=== PATIENT | female | born 1985 | race Caucasian/White ===

== ENCOUNTER 2017-03-16 09:20 | Observation (INO) ==
--- NOTE | 2017-03-16 09:37 | Emergency Department Note ---
Disposition Clinical Impression: Near syncope Disposition: Admitted As Inpatient Condition: Good Referrals: Swetha Monte FREEZER MACHINE OPERATOR [Primary Care Provider] - Forms: ED Satisfaction Letter Time of Disposition: 12:05 Syncope HPI - General Chief Complaint: ED Syncope Stated Complaint: GENERAL Time Seen by Provider: 03/16/17 09:31 Source: patient Mode of arrival: ambulatory Limitations: no limitations Nursing Notes Reviewed: Yes Vital Signs Reviewed: Yes - History of Present Illness HPI Narrative: 32-year-old female was driving to work earlier today became nauseated sweaty and felt like she is going to pass out she drove to her and laws laid on the floor for while started feeling somewhat better got into her car 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 Patient had a similar episode on Sunday. Patient has had what sounds to be vasovagal episodes in the past but nothing like this. Pt Subjective Complaint: felt faint, almost passed out Onset (ago): Just VALUE ADVISOR Duration: minutes(s) Description of Event: post-event confusion Prodromal Symptoms: lightheaded, diaphoresis, nausea/vomiting Witnessed: no Context: other (Driving) Injuries Sustained Associated with Event: none Current Symptoms: lightheaded History: previous syncopal episode Treatments prior to arrival: none Associated trauma secondary to event: No - Related Data Home Medications Medication Instructions Recorded Confirmed Levothyroxine [Synthroid] 112 mcg PO DAILY 06/11/15 01/25/17 Pantoprazole Sodium [Protonix] 40 mg PO DAILY 06/11/15 01/25/17 Buspirone HCl [Buspar] 10 mg PO BID 05/15/16 01/25/17 Cyanocobalamin (B-12) [Vitamin B12] 1,000 mcg PO DAILY 05/15/16 01/25/17 HydrOXYzine Pamoate [Vistaril] 25 mg PO Q8H PRN 05/15/16 01/25/17 Acetaminophen [Tylenol] 500 mg PO Q6H PRN 09/20/16 01/25/17 FLUoxetine HCl [PROzac] 20 mg PO DAILY 09/20/16 01/25/17 Ondansetron [Zofran] 8 mg PO Q8H PRN 09/20/16 01/25/17 SUMAtriptan Succinate [Imitrex] 100 mg PO DAILY PRN 09/20/16 01/25/17 Ergocalciferol (VITAMIN D2) 50,000 unit PO MO 11/01/16 01/25/17 [Vitamin D2] Magic Mouthwash 5 ml PO Q4H 11/01/16 01/25/17 Previous Rx's Medication Instructions Recorded Naproxen [Naprosyn] 500 mg PO BID #20 tablet 01/25/17 Allergies Allergy/AdvReac Type Severity Reaction Status Date / Time metoclopramide [From Reglan] Allergy See Verified 01/25/17 16:39 Comments All systems ED: reviewed and negative except as stated. Constitutional: Denies: fever, chills, weakness, weight change Eyes: Denies: eye pain, eye discharge, vision change ENT ED: Denies: ear pain, throat pain, dental pain, hearing loss, epistaxis, congestion, dysphagia Cardiovascular: Reports: syncope (Near). Denies: chest pain, palpitations, dyspnea on exertion, edema Respiratory: Denies: cough, dyspnea, wheezes, hemoptysis, stridor Gastrointestinal: Denies: abdominal pain, nausea, vomiting, diarrhea, constipation, hematemesis, melena, hematochezia Genitourinary: Denies: dysuria, frequency, hematuria, discharge Musculoskeletal: Denies: back pain, neck pain, arthralgia, myalgia Integumentary: Denies: rash, abrasion, lesions Neurological: Denies: headache, weakness, numbness, paresthesias, confusion, abnormal gait, vertigo Psychiatric: Denies: anxiety, depression, suicidal thoughts, homicidal thoughts , auditory hallucinations, visual hallucinations Endocrine: Denies: fatigue Hematological/Lymphatic: Denies: easy bleeding, easy bruising Allergic/Immunologic: Denies: facial swelling, urticaria Past Medical History - Past Medical History Medical history: Reports: arthritis, GERD, thyroid disease Surgical history: Reports: other Psychiatric history: Reports: anxiety 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 - Social History Smoking Status: Never smoker Smokeless Tobacco Status: No Alcohol use: Reports: none Drug use: Reports: none Physical Exam - General Limitations: no limitations General appearance: alert, in no apparent distress - Head Head exam: atraumatic, normocephalic, normal inspection - Eye Eye exam: Present: normal appearance, PERRL, EOMI - ENT ENT exam: normal exam, normal oropharynx, mucous membranes moist - Neck Neck exam: Present: normal inspection, full ROM, trachea midline - Chest Chest inspection: Present: normal inspection, symmetric chest wall rise - Respiratory Respiratory exam: Present: normal lung sounds bilaterally - Cardiovascular Cardiovascular exam: Present: regular rate, normal rhythm, normal heart sounds - Abdominal Exam Abdominal exam: Present: soft, Non-Tender. Absent: tenderness, distention, guarding, rebound, rigidity - Extremities Exam Extremities exam: Present: normal inspection, full ROM. Absent: tenderness, pedal edema - Expanded Lower Extremity Exam Neurovascular/Tendon exam: Absent: motor deficit, sensory deficit, tendon deficit Gait: observed and normal - Back Exam Back exam: Present: normal inspection, full ROM. 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 The previous episode about 4 days ago. Patient will be admitted for differential include seizure versus near syncope versus cardiac arrhythmia. Time: 12:06 - Consultations Consultation #1: Discussed with Dr. Manuel, admit Time: 12:04 Vital Signs Temperature 98.5 F 03/16/17 09:25 Pulse Rate 95 03/16/17 09:25 Respiratory Rate 16 03/16/17 09:25 Blood Pressure 136/94 03/16/17 09:25 O2 Sat by Pulse Oximetry 96 03/16/17 09:25 Temperature 98.5 F 03/16/17 09:25 Pulse Rate 81 03/16/17 11:28 Respiratory Rate 16 03/16/17 11:00 Blood Pressure 118/88 03/16/17 11:28 O2 Sat by Pulse Oximetry 99 03/16/17 11:00 Oxygen Delivery Oxygen Delivery Room Air Syncope - Lab Data Lab results reviewed: Yes I reviewed the patient's lab results. Result diagrams: 03/16/17 09:47 03/16/17 09:47 Lab Results 03/16/17 03/16/17 03/16/17 Range/Units 09:35 09:47 09:47 WBC 8.5 (4.3-11.1) K/mcL RBC 4.94 (3.82-4.97) M/mcL Hgb 14.7 (11.5-15.4) g/dL Hct 45.4 H (35.3-44.9) % MCV 91.9 (83.0-100.0) fL MCH 29.8 (28.0-33.3) pg MCHC 32.4 (31.6-35.5) g/dL RDW 13.2 (11.5-14.5) % Plt Count 291 (140-400) K/mcL MPV 9.5 (9.4-12.4) fL Immature Gran % 0.2 (0-4) % Seg Neutrophils % 75.1 % Lymphocytes % 17.4 % Monocytes % 6.0 % Eosinophils % 0.8 % Basophils % 0.5 % Neutrophils # 6.4 (1.6-8.9) K/mcL Lymphocytes # 1.5 (0.6-4.6) K/mcL Monocytes # 0.5 (0.0-1.3) K/mcL Eosinophils # 0.1 (0.0-0.6) K/mcL Basophils # 0.0 (0.0-0.2) K/mcL PT 10.9 (9.4-12.1) Seconds INR 1.0 APTT 28.3 (26.0-36.0) Seconds Sodium (136-145) mEq/L Potassium (3.5-4.5) mEq/L Chloride (98-109) mEq/L Carbon Dioxide (19-29) mEq/L BUN (7-20) mg/dL Creatinine (0.57-1.11) mg/dL Est GFR ( Amer) (> 60) Est GFR (Non-Af Amer) (> 60) BUN/Creatinine Ratio (6-26) Glucose (70-99) mg/dL Calculated Osmolality (280-300) Calcium (8.6-10.8) mg/dL Troponin I (0-0.03) ng/mL Serum , Qual (Negative) Urine Color Yellow (Yellow) Urine Clarity Clear (Clear) Urine pH 7.5 (5.0-8.0) pH Units Ur Specific [place] 1.012 (1.010-1.025) Urine Protein Negative (Neg-Trace) mg/dL Urine Glucose (UA) Normal (Normal) mg/dL Urine Ketones Negative (Negative) mg/dL Urine Blood Negative (Negative) Urine Nitrite Negative (Negative) Urine Bilirubin Negative (Negative) Urine Urobilinogen Normal (Normal) mg/dL Ur Leukocyte Esterase Negative (Negative) Ur Culture Indicated? NO (NO) 03/16/17 03/16/17 03/16/17 Range/Units 09:47 09:47 09:47 WBC (4.3-11.1) K/mcL RBC (3.82-4.97) M/mcL Hgb (11.5-15.4) g/dL Hct (35.3-44.9) % MCV (83.0-100.0) fL MCH (28.0-33.3) pg MCHC (31.6-35.5) g/dL RDW (11.5-14.5) % Plt Count (140-400) K/mcL MPV (9.4-12.4) fL Immature Gran % (0-4) % Seg Neutrophils % % Lymphocytes % % Monocytes % % Eosinophils % % Basophils % % Neutrophils # (1.6-8.9) K/mcL Lymphocytes # (0.6-4.6) K/mcL Monocytes # (0.0-1.3) K/mcL Eosinophils # (0.0-0.6) K/mcL Basophils # (0.0-0.2) K/mcL PT (9.4-12.1) Seconds INR APTT (26.0-36.0) Seconds Sodium 140 (136-145) mEq/L Potassium 4.0 (3.5-4.5) mEq/L Chloride 107 (98-109) mEq/L Carbon Dioxide 25 (19-29) mEq/L BUN 8 (7-20) mg/dL Creatinine 0.73 (0.57-1.11) mg/dL Est GFR ( Amer) > 60 (> 60) Est GFR (Non-Af Amer) > 60 (> 60) BUN/Creatinine Ratio 11 (6-26) Glucose 93 (70-99) mg/dL Calculated Osmolality 288 (280-300) Calcium 9.2 (8.6-10.8) mg/dL Troponin I 0.00 (0-0.03) ng/mL Serum , Qual Negative (Negative) Urine Color (Yellow) Urine Clarity (Clear) Urine pH (5.0-8.0) pH Units Ur Specific [place] (1.010-1.025) Urine Protein (Neg-Trace) mg/dL Urine Glucose (UA) (Normal) mg/dL Urine Ketones (Negative) mg/dL Urine Blood (Negative) Urine Nitrite (Negative) Urine Bilirubin (Negative) Urine Urobilinogen (Normal) mg/dL Ur Leukocyte Esterase (Negative) Ur Culture Indicated? (NO) - Radiology Data Radiology results reviewed: Yes I reviewed the patient's radiology results. Chest X-Ray 03/16/17 09:34 IMPRESSION: No acute cardiopulmonary process. D/ / 03/16/2017 11:01:25 Reagan Rea MD / [facility] Interpreting Provider: Reagan Rea MD Head CT 03/16/17 09:35 IMPRESSION: No acute intracranial abnormality. D/ / Dominik Agrawal MD / Dominik Agrawal MD Interpreting Provider: Dominik Agrawal MD - EKG Data EKG attestation: Yes I reviewed and interpreted this EKG. EKG shows normal: sinus rhythm Rate: normal Rhythm: NSR Interpretation: no acute changes
[2017-03-16 09:58] LABS: Basophils % 0.5 %; Eosinophils # 0.1 K/mcL (0.0-0.6); Eosinophils % 0.8 %; Hematocrit 45.4 % (35.3-44.9); Hemoglobin 14.7 g/dL (11.5-15.4); Immature Granulocytes % 0.2 % (0-4); Lymphocytes # 1.5 K/mcL (0.6-4.6); Lymphocytes % 17.4 %; Mean Corpuscular HGB Conc 32.4 g/dL (31.6-35.5); Mean Corpuscular Hemoglobin 29.8 pg (28.0-33.3); Mean Corpuscular Volume 91.9 fL (83.0-100.0); Mean Platelet Volume 9.5 fL (9.4-12.4); Monocytes # 0.5 K/mcL (0.0-1.3); Neutrophils # 6.4 K/mcL (1.6-8.9); Platelet Count 291 K/mcL (140-400); Red Blood Count 4.94 M/mcL (3.82-4.97); Red Cell Distribution Width 13.2 % (11.5-14.5); Segmented Neutrophils % 75.1 %
[2017-03-16 10:01] LABS: Bilirubin,Urine Negative (Negative); Blood,Urine Negative (Negative); Clarity,Urine Clear (Clear); Color,Urine Yellow (Yellow); Glucose,Urine (UA) Normal (Normal); Ketones,Urine Negative (Negative); Leukocyte Esterase,Urine Negative (Negative); Nitrite,Urine Negative (Negative); PH,Urine 7.5 pH Units (5.0-8.0); Protein,Urine Negative (Neg-Trace); Specific Gravity,Urine 1.012 (1.010-1.025); Urobilinogen,Urine Normal (Normal)
[2017-03-16 10:04] LABS: Prothrombin Time 10.9 Seconds (9.4-12.1)
[2017-03-16 10:07] LABS: Activated Partial Thrombo Time 28.3 Seconds (26.0-36.0)
[2017-03-16 10:12] LABS: BUN/Creatinine Ratio 11 (6-26); Blood Urea Nitrogen 8 mg/dL (7-20); Calcium 9.2 mg/dL (8.6-10.8); Carbon Dioxide 25 mEq/L (19-29); Chloride 107 mEq/L (98-109); Glucose 93 mg/dL (70-99); Osmolality,Calculated 288 (280-300); Sodium 140 mEq/L (136-145); eGFR For African Americans > 60 (> 60); eGFR For Non-African Americans > 60 (> 60)
--- NOTE | 2017-03-16 12:19 | Event Note ---
Date of Encounter: 03/16/17 Time of Encounter: 12:16 1. Recurrent syncope, possibly vasovagal Consider possible PE, check a CT angiogram chest Telemetry, fall precautions, check echocardiogram Consider cardiology consult if positive findings 2. Hypothyroidism, continue Synthroid, may recheck TSH 3. GERD, continue PPI 4. Depression, stable 5. History of migraines, stable Omeprazole for GI prophylaxis and Lovenox for DVT prophylaxis. Admitted for observation, full code. Time spent on this admission 40 min . High risk for falling H&P to be completed by TJ Blanchard
[2017-03-16] MEDS ORDERED: Ondansetron ODT 4 MG TAB.RAPDIS SL ONE (12:32)
[2017-03-16] MEDS ORDERED: Ondansetron 4 MG/2 ML VIAL IVP PRN (13:06)
[2017-03-16] MEDS ORDERED: *HR* HYDROcodone/Acet 5/325 mg TABLET PO PRN (13:06)
[2017-03-16] MEDS ORDERED: Acetaminophen 325 MG TABLET PO PRN (13:06)
[2017-03-16] MEDS ORDERED: Naloxone 0.4 MG/ML INJ IVP PRN (13:06)
[2017-03-16] MEDS ORDERED: SUMAtriptan succinate 50 MG TABLET PO PRN (13:10)
[2017-03-16] MEDS ORDERED: hydrOXYzine pamoate 25 MG CAPSULE PO PRN (13:10)
--- NOTE | 2017-03-16 13:26 | Internal Med History&Physical ---
<JyotiraynecaitlinDemarcus bills - Last Filed: 03/16/17 13:52> Date of Encounter: 03/16/17 Time of Encounter: 12:30 Assessment and Plan (1) Near syncope Current visit: Yes Status: Acute Patient presents with acute pre-syncopal episode and report of previous syncopal episodes. Patient reports episodes are accompanied by diaphoresis, nausea, disorientation, SOB, and chest pressure. Patient denies any history of cardiac events, CVA, DVT, or PE. Episodes possibly vasovagal. Patient reports her father had MSJamel Due to SOB, will consider possibility of PE and order CTA of the chest. EKG today and from 06/11/15 are essentially unchanged showing sinus rhythm and normal ECG. Echocardiogram and bilateral carotid Doppler duplex imaging ordered and patient to be placed on continuous cardiac telemetry. Will consider cardiology consult based on results of echocardiogram and bilateral carotid Doppler imaging. Falls/safety precautions. (2) GERD (gastroesophageal reflux disease) Current visit: Yes Status: Chronic Patient presents with history of chronic GERD. IVP Zofran Q6 PRN and IVP Protonix 40 mg daily ordered. Qualifiers: Esophagitis presence: esophagitis presence not specified Qualified Code(s) : K21.9 - Gastro-esophageal reflux disease without esophagitis (3) Thyroid disease Current visit: Yes Status: Chronic Patient presents with history of chronic hypothyroidism. Will continue patient' s Synthroid. (4) Migraine Current visit: Yes Status: Chronic Patient presents with history of chronic migraine headaches. Will continue patient's Imitrex as needed. Qualifiers: Migraine type: unspecified Status migrainosus presence: without status migrainosus Intractability: not intractable Qualified Code(s): G43.909 - Migraine, unspecified, not intractable, without status migrainosus (5) Anxiety and depression Current visit: Yes Status: Chronic Patient presents with history of chronic anxiety and depression controlled with medications. Will continue patient's BuSpar and Prozac. (6) DVT prophylaxis Current visit: Yes Status: Acute Patient to be placed on DVT prophylaxis due to current admission protocol and bed rest status. Heparin 5,000 units SQ Q8 ordered. Internal Medicine - H&P: HPI Chief complaint: Syncope Admitted From: Emergency Dept Plans for Post Hospital Care: Home History of present illness: Ms. Silva is a 32 year old female with medical history of arthritis, GERD, thyroid disease, and gastroparesis presents from the ED with chief complaint of presyncope. Patient states she was driving to work earlier today and became diaphoretic and nauseous and improved her in-laws until she felt better. Again became diaphoretic, nauseous, and disoriented and was brought to the ED for evaluation. Patient states similar symptoms happened on Sunday. Patient also reports history of random syncopal episodes with palpitations over the past several years. Past injuries include a fractured skull when she was 14 a right foot sprain and one half months ago with no fracture. Patient reports lightheadedness, dizziness, disorientation, chest pressure, diaphoresis, and nausea. She denies vomiting, changes in vision, abdominal pain, headache, unusual bleeding, recent illness, fever, chills, or diarrhea. Patient also denies any previous cardiac history or history of CVA, DVT, or PE. On admission , patient's vital signs include temperature 98.5 F, heart rate of 95, respiratory rate of 16, BP of 136/94, and SPO2 of 96% on room air. Secondary BP was 118/88. Initial labs are unremarkable and WNL with exception of HCT at 45.4. Serum test is negative. UA is not indicative for culture. On examination, patient's HR is RRR with no arrhythmia and lungs are clear on auscultation. Patient is hemodynamically stable and reports no acute distress. Information taken from patient, chart review, and previous medical records. Ms. Silva is at high risk for falls/injury based on current symptoms and history of syncope and will be placed as observation status. Time spent with patient greater than 40 minutes. Past Med Surg Social Fam HX - Past Medical History Source: patient Medical history: arthritis, GERD, thyroid disease Psychiatric history: anxiety - Past Surgical History Surgical History: other - Social History Smoking Status: Never smoker Smokeless Tobacco Status: No Alcohol use: none Drug use: none Occupational status: employed Current living situation: Home, With Family Activity Level: Independent ambulation, Very active Recent Out of Country Travel Within the Last 8 Weeks: No Exposure or Possible Exposure to Illness During Travel: No - Family History Father Race: Family Member Ethnicity: Non- Living Status: Age at : 54 Cause of : DE Hx Family Cardiac Disorders: Yes (DE, HTN) Hx Family Neuromuscular Disorders: Yes (MS) Mother Race: Family Member Ethnicity: Non- Living Status: Still Living Hx Family Medical Disorders: No Brother Race: Family Member Ethnicity: Non- Living Status: Still Living Hx Family Medical Disorders: No Sister Race: Family Member Ethnicity: Non- Living Status: Still Living Hx Family Neurologic Disorders: Yes (Migraines) Internal Medicine - H&P: Meds Levothyroxine [Synthroid] 112 mcg PO DAILY 06/11/15 [History] Pantoprazole Sodium [Protonix] 40 mg PO DAILY 06/11/15 [History] Buspirone HCl [Buspar] 10 mg PO BID 05/15/16 [History] Cyanocobalamin (B-12) [Vitamin B12] 1,000 mcg PO DAILY 05/15/16 [History] HydrOXYzine Pamoate [Vistaril] 25 mg PO Q8H PRN 05/15/16 [History] Acetaminophen [Tylenol] 500 mg PO Q6H PRN 09/20/16 [History] FLUoxetine HCl [PROzac] 20 mg PO DAILY 09/20/16 [History] Ondansetron [Zofran] 8 mg PO Q8H PRN 09/20/16 [History] SUMAtriptan Succinate [Imitrex] 100 mg PO DAILY PRN 09/20/16 [History] Ergocalciferol (VITAMIN D2) [Vitamin D2] 50,000 unit PO MO 11/01/16 [History] Magic Mouthwash 5 ml PO Q4H 11/01/16 [History] Lubiprostone [Amitiza] 24 mcg PO BID 03/16/17 [History] 3 Allergy/AdvReac Type Severity Reaction Status Date / Time metoclopramide [From Reglan] Allergy See Verified 01/25/17 16:39 Comments All Systems PM: A 10-system review of systems was performed and is negative for pertinent findings except as documented above in the HPI. - Constitutional Constitutional: as per HPI, excessive sweating (Diaphoresis with syncopal episodes), falls, no chills, no fever(s), no night sweats - EENT Eyes: no change in vision, no discharge, no pain, no photophobia Ears: no ear discharge, no ear pain, no tinnitus Nose, mouth and throat: no dysphagia, no nasal discharge, no neck pain, no sore throat - Breasts Breasts: as per HPI - Cardiovascular Cardiovascular ROS IM: as per HPI, palpitations (With syncopal episodes), no chest pain, no diaphoresis, no dyspnea, no lightheadedness, no syncope - Respiratory Respiratory: no cough, no dyspnea, no wheezing, no excessive phlegm production - Gastrointestinal Gastrointestinal: as per HPI, nausea (With syncopal episodes), no abdominal pain , no diarrhea, no hematemesis, no hematochezia, no melena, no vomiting - Genitourinary Genitourinary: no change in urinary stream, no dysuria, no flank pain, no hematuria Menstruation: as per HPI - Musculoskeletal Musculoskeletal ROS IM: no numbness, no tingling - Integumentary Integumentary IM: no rash, no unusual bruising - Neurological Neurological ROS: confusion (Confusion and disorientation today with syncopal episode), no convulsions, no focal weakness, no numbness, no tingling, no tremor (s) - Psychiatric Psychiatric: as per HPI - Endocrine Endocrine IM: as per HPI - Hematologic/Lymphatic Hematologic/Lymphatic: no easy bruising - Allergic/Immunologic Allergic/Immunologic: as per HPI - Constitutional Vitals: Temp Pulse Resp BP Pulse Ox 98.4 F 80 0 130/94 97 03/16/17 13:10 03/16/17 13:10 03/16/17 13:00 03/16/17 13:10 03/16/17 13:10 General appearance: Present: cooperative, A&O X 3, pleasant, no acute distress, obese, answers questions appropriately - Head Head exam: Present: atraumatic, normocephalic - Eye Eye exam: Present: PERRL, conjuntiva pink, sclera anicteric Pupils: Present: PERRL - ENT ENT exam: Present: normal exam, normal external ear exam - Neck Neck exam general surgery: Present: normal inspection, supple, trachea midline. Absent: lymphadenopathy - Respiratory Respiratory exam: Present: CTAB. Absent: accessory muscle use, rales, rhonchi, wheezes - Cardiovascular Cardiovascular exam: Present: RRR, +S1, +S2. Absent: diastolic murmur, gallop, rubs, systolic murmur - GI/Abdominal GI/Abdominal exam: Present: normal bowel sounds, soft, no peritoneal signs. Absent: distended, tenderness - Rectal Rectal exam: Present: deferred - Additional comments: exam deferred. - Extremities Exam Extremities exam: Present: warm, radial pulses palpable and symmetrical. Absent : calf tenderness, cyanotic, pedal edema - Back Exam Back exam: Present: normal inspection - Neurological Exam Neurological exam: Present: CN II-XII intact, oriented X3, no focal deficits. Absent: pronater drift, facial droop, speech deficit - Psychiatric Psychiatric exam: Present: normal affect, normal mood - Skin Skin exam: Present: dry, intact Internal Med - H&P Results - Labs CBC & Chem 7: 03/16/17 09:47 03/16/17 09:47 - EKG Data EKG shows normal: sinus rhythm Rate: normal - EKG Data Prior EKG available for review: yes When compared to previous EKG: there is no significant change Interpretation IM: normal EKG - Diagnostic Studies Chest x-ray Additional comments: Impressions Chest X-Ray 03/16/17 09:34 IMPRESSION: No acute cardiopulmonary process. D/ / 03/16/2017 11:01:25 Reagan Rea MD / [facility] Interpreting Provider: Reagan Rea MD CT scan - head Additional comments: Impressions Head CT 03/16/17 09:35 IMPRESSION: No acute intracranial abnormality. D/ / Dominik Agrawal MD / Dominik Agrawal MD Interpreting Provider: Dominik Agrawal MD <Myke Abarca H - Last Filed: 03/16/17 18:27> Date of Encounter: 03/16/17 Internal Medicine - H&P: HPI History of present illness: Ms. Silva is a 32 year old female All Systems PM: A 10-system review of systems was performed and is negative for pertinent findings except as documented above in the HPI. - Constitutional Vitals: Temp Pulse Resp BP Pulse Ox 98.4 F 80 0 130/94 97 03/16/17 13:10 03/16/17 13:10 03/16/17 13:00 03/16/17 13:10 03/16/17 13:10 Internal Med - H&P Results - Labs CBC & Chem 7: 03/16/17 09:47 03/16/17 09:47 - Impressions ITS Impressions Chest CTA 03/16/17 14:30 IMPRESSION: No evidence of pulmonary embolism or acute pulmonary abnormality. D/ / Bj Price / Bj Price Interpreting Provider: Bj Price - Attending Attestation 1. Recurrent syncope, possibly vasovagal Consider possible PE, check a CT angiogram chest Telemetry, fall precautions, check echocardiogram Consider cardiology consult if positive findings 2. Hypothyroidism, continue Synthroid, may recheck TSH 3. GERD, continue PPI 4. Depression, stable 5. History of migraines, stable Omeprazole for GI prophylaxis and Lovenox for DVT prophylaxis. Admitted for observation, full code. Time spent on this admission 40 min . High risk for falling For this encounter, I have reviewed the TACKING STITCH REMOVER or PA documentation, treatment plan, and medical decision making; and I have had face to face time with this patient.
[2017-03-16] MEDS: Pantoprazole 40 MG VIAL IVP SCH (16:00)
[2017-03-16] MEDS: Magic Mouthwash 10 ML UD Cup PO SCH ×4 (16:27→23:34)
[2017-03-16] MEDS: *HR* Heparin 5,000 UNIT/ML VIAL SQ SCH ×2 (16:28→20:28)
--- NOTE | 2017-03-16 17:24 | Carotid Imaging Report ---
Carotid Duplex Patient Name:Conchita Silva Order Number:[id number] Procedure Date:03/16/2017 Date:1985Age:32 yrs Gender:Female Lt BP:130 / 94 mmHg Rt.BP:130 / 94 mmHgHeart Rate: Location:[facility] Room #: 3B55 Portrait Artist:Yuridia Joya RDCS Referring MD:Demarcus Blanchard CNP personnel security specialist:Swetha Monte, RESEARCH SOIL SCIENTIST Reading MD:Byron Brock MD Primary Indications:Syncope Impressions: The bilateral carotid arteries are normal throughout. Findings Prior Study: No prior study available for comparison. Carotid Results Right PSV EDV Assessment Proximal CCA 91 19 Normal Mid CCA 86 28 Normal Distal CCA 79 26 Normal Bifurcation 69 29 Normal Proximal ICA 77 38 Normal Mid ICA 109 62 Normal Distal ICA 106 59 Normal ECA 79 17 Normal Vertebral Artery 55 25 Antegrade Flow Left PSV EDV Assessment Proximal CCA 102 22 Normal Mid CCA 77 22 Normal Distal CCA 81 30 Normal Bifurcation 61 27 Normal Proximal ICA 67 25 Normal Mid ICA 71 41 Normal Distal ICA 92 46 Normal ECA 93 17 Normal Vertebral Artery 49 24 Antegrade Flow Ratio's Right ICA/CCA Ratio: 1.27 ICA/CCA Values: 109/86 Left ICA/CCA Ratio: 1.19 ICA/CCA Values: 92/77 Updated by Byron Brock MD on 03/16/2017 5:16:43 PM electronically signed on 03/16/2017 5:17:04 PM with status of Final
[2017-03-16] MEDS: (Lubiprostone [Amitiza] 24 MCG) PO SCH (20:28)
[2017-03-17] MEDS: Magic Mouthwash 10 ML UD Cup PO SCH ×3 (05:56→12:20)
[2017-03-17] MEDS: *HR* Heparin 5,000 UNIT/ML VIAL SQ SCH ×2 (06:12→12:06)
[2017-03-17 08:06] LABS: Basophils % 0.6 %; Eosinophils # 0.1 K/mcL (0.0-0.6); Eosinophils % 1.4 %; Hematocrit 43.5 % (35.3-44.9); Hemoglobin 14.3 g/dL (11.5-15.4); Immature Granulocytes % 0.2 % (0-4); Lymphocytes # 1.8 K/mcL (0.6-4.6); Lymphocytes % 35.1 %; Mean Corpuscular HGB Conc 32.9 g/dL (31.6-35.5); Mean Corpuscular Hemoglobin 30.6 pg (28.0-33.3); Mean Corpuscular Volume 92.9 fL (83.0-100.0); Mean Platelet Volume 10.2 fL (9.4-12.4); Monocytes # 0.4 K/mcL (0.0-1.3); Monocytes % 8.2 %; Neutrophils # 2.7 K/mcL (1.6-8.9); Platelet Count 295 K/mcL (140-400); Red Blood Count 4.68 M/mcL (3.82-4.97); Red Cell Distribution Width 13.5 % (11.5-14.5); Segmented Neutrophils % 54.5 %
[2017-03-17] MEDS: (Lubiprostone [Amitiza] 24 MCG) PO SCH (08:08)
[2017-03-17 08:22] LABS: Hemoglobin A1C 4.7 %
[2017-03-17] MEDS: Pantoprazole 40 MG VIAL IVP SCH (08:22)
[2017-03-17 08:36] LABS: Alanine Aminotransferase 12 Units/L (0-55); Albumin 3.6 g/dL (3.5-5.0); Albumin/Globulin Ratio 0.9 (1.1-2.2); Alkaline Phosphatase 104 Units/L (38-126); Aspartate Amino Transferase 15 Units/L (5-34); BUN/Creatinine Ratio 14 (6-26); Bilirubin,Total 0.6 mg/dL (0.2-1.2); Blood Urea Nitrogen 11 mg/dL (7-20); Calcium 9.1 mg/dL (8.6-10.8); Carbon Dioxide 28 mEq/L (19-29); Chloride 104 mEq/L (98-109); Chol/HDL Ratio 3.6 (0-4.9); Cholesterol 243 mg/dL (< 200); Globulin 3.8 g/dL (2.4-3.5); Glucose 77 mg/dL (70-99); HDL Cholesterol 67 mg/dL (40-59); LDL Cholesterol,Calculated 163 mg/dL (0-99); Magnesium 2.5 mg/dL (1.6-2.6); Osmolality,Calculated 288 (280-300); Sodium 140 mEq/L (136-145); Total Protein 7.4 g/dL (6.0-8.3); Triglycerides 66 mg/dL (< 150); eGFR For African Americans > 60 (> 60); eGFR For Non-African Americans > 60 (> 60)
[2017-03-17 08:57] LABS: Thyroid Stimulating Hormone 4.068 mcIU/mL (0.350-4.840)
[2017-03-17] MEDS ORDERED: Cyanocobalamin (B-12) 1,000 MCG TABLET PO SCH (09:00)
[2017-03-17] MEDS ORDERED: FLUoxetine 20 MG CAPSULE PO SCH (09:00)
--- NOTE | 2017-03-17 09:53 | Internal Med Progress Note ---
Date of Encounter: 03/17/17 Time of Encounter: 09:15 - Assessment and plan (1) Near syncope Current Visit: Yes Status: Acute Assessment and plan: Unclear causation at this time. Patient stating she had her first episode when she was 14 years old and had a resultant syncopal episode with loss of consciousness and a skull fracture. She has not had an MRI since the age of 14. History is not consistent with seizures, neurology brought on board- appreciate their recommendations. No signs of acute infectious processes. Chest x-ray negative. Head CT negative. Carotid ultrasound unremarkable. Echocardiogram normal with ejection fraction of 60%. CTA negative. Urinalysis negative. TSH normal. Mild hyperlipidemia otherwise lab work unremarkable. Patient is currently asymptomatic. She states that these episodes have recurred several times throughout her adult life as well. MRI pending. She states that her maternal grandfather at age 29 from a brain aneurysm. She does have history of gastroparesis but is being followed up at the [facility] and at [facility]. She denies any current symptoms. We will await MRI results. ITS Impressions Chest X-Ray 03/16/17 09:34 IMPRESSION: No acute cardiopulmonary process. D/ / 03/16/2017 11:01:25 Reagan Rea MD / [facility] Interpreting Provider: Reagan Rea MD Head CT 03/16/17 09:35 IMPRESSION: No acute intracranial abnormality. D/ / Dominik Agrawal MD / Dominik Agrawal MD Interpreting Provider: Dominik Agrawal MD Chest CTA 03/16/17 14:30 IMPRESSION: No evidence of pulmonary embolism or acute pulmonary abnormality. D/ / Bj Price / Bj Price Interpreting Provider: Bj Price Carotid Duplex Procedure Date: 03/16/2017 Impressions: The bilateral carotid arteries are normal throughout. Echocardiogram Date of Study: 03/16/2017 Impressions: LVEF 60%. Normal LV chamber size, wall thickness and function. Normal left ventricular diastolic function. Normal right ventricular structure and function. No evidence of pulmonary hypertension. No significant valvular dysfunction. (2) Gastroparesis Current Visit: Yes Status: Chronic Assessment and plan: She is followed both at [facility] and [facility]. Denies current issues or concerns. (3) Hyperlipidemia Current Visit: Yes Status: Acute Assessment and plan: Total cholesterol 243, LDL 163. Recommend lifestyle changes. Addition of a statin at the discretion of her primary care team (4) GERD (gastroesophageal reflux disease) Current Visit: Yes Status: Chronic Assessment and plan: Denies current symptoms. Qualifiers: Esophagitis presence: esophagitis presence not specified Qualified Code(s) : K21.9 - Gastro-esophageal reflux disease without esophagitis (5) Thyroid disease Current Visit: Yes Status: Chronic Assessment and plan: Patient had hypothyroidism and was placed on Synthroid. Her TSH was low and her Synthroid dosage was decreased approximately 1-1/2 months ago per the [facility]. TSH normal today. We will check T3 and T4. (6) Migraine Current Visit: Yes Status: Chronic Assessment and plan: Patient denies headaches at this time. Imitrex as needed. Qualifiers: Migraine type: unspecified Status migrainosus presence: without status migrainosus Intractability: not intractable Qualified Code(s): G43.909 - Migraine, unspecified, not intractable, without status migrainosus (7) Anxiety and depression Current Visit: Yes Status: Chronic Assessment and plan: Mood and affect stable. Patient denies any increased stressors or psychosocial issues at home. (8) DVT prophylaxis Current Visit: Yes Status: Acute Assessment and plan: Subcutaneous heparin - Subjective Interval history: Patient seen and examined. On examination, patient sitting upright in bed. Patient denies pain, shortness of breath, dizziness or lightheadedness at this time. She is endorsing a normal appetite. - Constitutional Vitals: Temp Pulse Resp BP Pulse Ox 98.3 F 69 16 115/83 100 03/17/17 07:16 03/17/17 07:16 03/17/17 07:16 03/17/17 07:16 03/17/17 07:16 General appearance: Present: cooperative, A&O X 3, pleasant, no acute distress, answers questions appropriately - Head Head exam: Present: atraumatic, normocephalic - Eye Eye exam: Present: PERRL, conjuntiva pink, sclera anicteric Pupils: Present: PERRL - Neck Neck exam general surgery: Present: supple, trachea midline. Absent: lymphadenopathy - Respiratory Respiratory exam: Present: CTAB. Absent: accessory muscle use, rales, respiratory distress, rhonchi, wheezes - Cardiovascular Cardiovascular exam: Present: RRR, +S1, +S2. Absent: diastolic murmur, gallop, rubs, systolic murmur - GI/Abdominal GI/Abdominal exam: Present: normal bowel sounds, soft, no peritoneal signs. Absent: distended, tenderness - Extremities Exam Extremities exam: Present: warm, radial pulses palpable and symmetrical. Absent : calf tenderness, cyanotic, pedal edema - Neurological Exam Neurological exam: Present: alert, CN II-XII intact, normal gait, oriented X3, no focal deficits, strengths equal and symetr throughout. Absent: pronater drift, facial droop, speech deficit - Skin Skin exam: Present: dry, intact, normal color, warm Internal Medicine: Result - Labs CBC & Chem 7: 03/17/17 06:54 03/17/17 06:54 Labs: Short CBC 03/17/17 Range/Units 06:54 WBC 5.0 (4.3-11.1) K/mcL Hgb 14.3 (11.5-15.4) g/dL Hct 43.5 (35.3-44.9) % Plt Count 295 (140-400) K/mcL Neutrophils # 2.7 (1.6-8.9) K/mcL BMP 03/17/17 06:54 Sodium 140 Potassium 4.0 Chloride 104 Carbon Dioxide 28 BUN 11 Creatinine 0.76 Glucose 77 Calcium 9.1 Liver Function 03/17/17 Range/Units 06:54 Total Bilirubin 0.6 (0.2-1.2) mg/dL AST 15 (5-34) Units/L ALT 12 (0-55) Units/L Alkaline Phosphatase 104 (38-126) Units/L Albumin 3.6 (3.5-5.0) g/dL - ABG Interpretation ABG results: PT/INR, D-dimer PT 10.9 Seconds (9.4-12.1) 03/16/17 09:47 D-Dimer 522 ng/mLFEU (0-500) H 03/16/17 12:59 - Impressions Impressions Chest CTA 03/16/17 14:30 IMPRESSION: No evidence of pulmonary embolism or acute pulmonary abnormality. D/ / Bj Price / Bj Price Interpreting Provider: Bj Price Consult Discharge Plan - Plan Referrals: Swetha Monte, INDUSTRIAL ORGANIZATION MANAGER [Primary Care Provider] -
--- NOTE | 2017-03-17 10:08 | Neurology - Consult Note ---
Date of Encounter: 03/17/17 Time of Encounter: 10:01 Assessment and Plan (1) Near syncope Current Visit: Yes Status: Acute Patient developed few episodes of what appeared to be near syncopal episodes usually resolved with laying down not associated with loss of consciousness, last one was prolonged with observed confusion and headache. does not appear to be seizures. may be vasaovagal or orthostatic in nature. Agree with obtaining MRI of brain without contrast. If symptoms persist then she may benefit from rhythm monitoring or cardiology consult. EEG thought to be of low yield but this can certainly be done as an outpatient. I will see her again at your request History of Present Illness Chief complaint: near syncope and confusion HPI: Ms. Silva is a 32 year old female 32 year old woman with PMH significant for gastroparesis, Vitamin D deficiency, Hypothyroidism, migraine anxiety depression who developed near syncope x3 within the last week. 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 She had then another similar episode later. The 3th episode was more prominent and she felt an overwhelming feeling over her whole body and she felt that her body was shutting down and then over the next half hour she was told that that she was confused and she also developed a frontal headache. She does have history of migraine in the past but these near syncope episodes are different. She denies loss of consciousness. No motor activity reported. She is currently feeling fine and denies any focal neurological symptoms Past Med Surg Social Fam HX - Past Medical History Medical history: arthritis, GERD, thyroid disease Psychiatric history: anxiety - Past Surgical History Surgical History: other - Social History Smoking Status: Never smoker Smokeless Tobacco Status: No Alcohol use: none Drug use: none - Family History Father Race: Family Member Ethnicity: Non- Living Status: Age at : 54 Cause of : HI Hx Family Cardiac Disorders: Yes (HI, HTN) Hx Family Neuromuscular Disorders: Yes (MS) Mother Race: Family Member Ethnicity: Non- Living Status: Still Living Hx Family Medical Disorders: No Brother Race: Family Member Ethnicity: Non- Living Status: Still Living Hx Family Medical Disorders: No Sister Race: Family Member Ethnicity: Non- Living Status: Still Living Hx Family Neurologic Disorders: Yes (Migraines) Medications and Allergies Levothyroxine [Synthroid] 112 mcg PO DAILY 06/11/15 [History] Pantoprazole Sodium [Protonix] 40 mg PO DAILY 06/11/15 [History] Buspirone HCl [Buspar] 10 mg PO BID 05/15/16 [History] Cyanocobalamin (B-12) [Vitamin B12] 1,000 mcg PO DAILY 05/15/16 [History] HydrOXYzine Pamoate [Vistaril] 25 mg PO Q8H PRN 05/15/16 [History] Acetaminophen [Tylenol] 500 mg PO Q6H PRN 09/20/16 [History] FLUoxetine HCl [PROzac] 20 mg PO DAILY 09/20/16 [History] Ondansetron [Zofran] 8 mg PO Q8H PRN 09/20/16 [History] SUMAtriptan Succinate [Imitrex] 100 mg PO DAILY PRN 09/20/16 [History] Ergocalciferol (VITAMIN D2) [Vitamin D2] 50,000 unit PO MO 11/01/16 [History] Magic Mouthwash 5 ml PO Q4H 11/01/16 [History] Lubiprostone [Amitiza] 24 mcg PO BID 03/16/17 [History] 3 Allergy/AdvReac Type Severity Reaction Status Date / Time metoclopramide [From Reglan] Allergy See Verified 01/25/17 16:39 Comments All Systems: A 10-system review of systems was performed and is negative for pertinent findings except as documented above in the HPI. Physical Examination - Vital Signs Vital Signs: Initial Vital Signs Temp Pulse Resp BP Pulse Ox 98.5 F 95 16 136/94 96 03/16/17 09:25 03/16/17 09:25 03/16/17 09:25 03/16/17 09:25 03/16/17 09:25 - Constitutional General appearance: comfortable - Neurologic Detailed motor examination: full strength in all major muscle groups Motor examination - right side: 5/5: deltoids, biceps, triceps, wrist flexion, wrist extension, sales lead, hip flexors, tibialis Anterior, quadriceps, toe extension (EHL), plantarflexion Motor examination - left side: 5/5: deltoids, biceps, triceps, wrist flexion, wrist extension, hip flexors, sales lead, quadriceps, tibialis Anterior, toe extension (EHL), plantarflexion Mental Status Examination: awake, alert, oriented to person, oriented to place, oriented to time, follows commands appropriately, answers questions appropriately, no agnosia, no aphasia, no aproxia Cranial nerve examination: PERRL, EOMI, visual hayden intact, corneal reflexes brisk symmetrically, sensory to face intact, mastication intact, no facial asymmetry is present, no dysarthria, hearing is intact symmetrically, soft palate elevates bilaterally upon phonation, gag reflex intact, flexes SCM and trapezius muscles symmetrically with full power, tongue protrudes midline, no atrophy or facial fasiculations present Cerebellar examination: no dysmetria, performs finger to nose and heel to hannon symmetrically without ataxia, no gait ataxia, no truncal ataxia, no difficulty with rapid alternating movements Results - Laboratory Findings CBC and BMP: 03/17/17 06:54 03/17/17 06:54 Abnormal lab findings: Abnormal lab results D-Dimer 522 ng/mLFEU (0-500) H 03/16/17 12:59 Globulin 3.8 g/dL (2.4-3.5) H 03/17/17 06:54 Albumin/Globulin Ratio 0.9 (1.1-2.2) L 03/17/17 06:54 Cholesterol 243 mg/dL (< 200) H 03/17/17 06:54 LDL Cholesterol, Calc 163 mg/dL (0-99) H 03/17/17 06:54 HDL Cholesterol 67 mg/dL (40-59) H 03/17/17 06:54 Consult Discharge Plan - Plan Referrals: Swetha Monte CNP [Primary Care Provider] -
[2017-03-17 10:49] LABS: Triiodothyronine (T3) Free 2.24 pg/mL (1.71-3.71); Triiodothyronine (T3) Total 0.93 ng/mL (0.58-1.59)
[2017-03-17 11:15] VITALS: BP 118/85
--- NOTE | 2017-03-17 14:46 | Discharge Summary ---
Date of Encounter: 03/17/17 Time of Encounter: 09:30 (and 1415) - Discharge Diagnosis (1) Near syncope Priority: Primary Status: Acute Comments: Unclear causation at this time. History is not consistent with seizures, neurology brought on board and have cleared her for outpatient followup. No signs of acute infectious processes. Chest x-ray negative. Head CT negative. Carotid ultrasound unremarkable. Echocardiogram normal with ejection fraction of 60%. CTA negative. Urinalysis negative. TSH normal. Mild hyperlipidemia otherwise lab work unremarkable. Brain MRI negative for acute processes. Patient asymptomatic while admitted. Recommend continued follow-up outpatient. (2) Gastroparesis Priority: Secondary Status: Chronic Comments: She is followed both at [facility] and [facility]. Denies current issues or concerns. Negative lactic acid ruling out bowel ischemia (3) Hyperlipidemia Priority: Primary Status: Acute Comments: Total cholesterol 243, LDL 163. Recommend lifestyle changes. Addition of a statin at the discretion of her primary care team (4) GERD (gastroesophageal reflux disease) Priority: Secondary Status: Chronic Comments: Denied current symptoms Qualifiers: Esophagitis presence: esophagitis presence not specified Qualified Code(s) : K21.9 - Gastro-esophageal reflux disease without esophagitis (5) Thyroid disease Priority: Secondary Status: Chronic Comments: TSH, T4, T3 all normal (6) Migraine Priority: Secondary Status: Chronic Comments: Denied headache while admitted Qualifiers: Migraine type: unspecified Status migrainosus presence: without status migrainosus Intractability: not intractable Qualified Code(s): G43.909 - Migraine, unspecified, not intractable, without status migrainosus (7) Anxiety and depression Priority: Secondary Status: Chronic Comments: Mood and affect stable during admission (8) DVT prophylaxis Priority: Primary Status: Acute Comments: Subcutaneous heparin while admitted - Discharge Medications Home Medications: Levothyroxine [Synthroid] 112 mcg PO DAILY 06/11/15 [History] Pantoprazole Sodium [Protonix] 40 mg PO DAILY 06/11/15 [History] Buspirone HCl [Buspar] 10 mg PO BID 05/15/16 [History] Cyanocobalamin (B-12) [Vitamin B12] 1,000 mcg PO DAILY 05/15/16 [History] HydrOXYzine Pamoate [Vistaril] 25 mg PO Q8H PRN 05/15/16 [History] Acetaminophen [Tylenol] 500 mg PO Q6H PRN 09/20/16 [History] FLUoxetine HCl [Prozac] 20 mg PO DAILY 09/20/16 [History] Ondansetron [Zofran] 8 mg PO Q8H PRN 09/20/16 [History] SUMAtriptan Succinate [Imitrex] 100 mg PO DAILY PRN 09/20/16 [History] Ergocalciferol (VITAMIN D2) [Vitamin D2] 50,000 unit PO MO 11/01/16 [History] Magic Mouthwash 5 ml PO Q4H 11/01/16 [History] Lubiprostone [Amitiza] 24 mcg PO BID 03/16/17 [History] Allergies/Adverse Reactions: 3 Allergy/AdvReac Type Severity Reaction Status Date / Time metoclopramide [From Reglan] Allergy See Verified 01/25/17 16:39 Comments Procedures/tests Complete & Pending: Procedures Performed prior 72 hours Category Date Time Status CTA chest [CT angio chest] [CT] Routine Cat Scan 03/16/17 14:30 Completed MR head/brain wo con [MR] Routine MRI 03/17/17 09:23 Completed EV carotid duplex imaging BI Routine Y 03/16/17 13:17 Completed EV echocardiogram Routine Y 03/16/17 13:17 Completed Date of admission: 03/16/17 12:30 Primary care physician: Swetha Monte, Consults: 03/17/17 09:51 Consult to Neurology [CONS] Routine Consulting Provider: Neurology [facility] Reason for Consult: neaer syncope. has happened in the past with resultant skull fxr age 14. fam hx anuerysms and MGF age 29. Time Notified: 09:52 Call Completed: Yes Discharging clinician: Nydia Emerson Anticipated date of discharge: 03/17/17 - Patient Status Disposition: Home, Self-Care Condition: Good Functional capacity at discharge: independent ambulation Overall status at discharge: patient is back to baseline - Discharge Instructions Follow Up With: Swetha Monte CNP [Primary Care Provider] - Additional Instructions: Follow-up with primary care provider within one to 2 weeks - Diet and Activity Activity: increase activity as tolerated Diet: advance to your usual diet Hospital course: Ms. Silva is a 32 year old female with past medical history of arthritis, GERD, thyroid disease, gastroparesis, migraines. Patient presented to the emergency department chief complaint of presyncope. Patient states she was driving to work on the day of presentation when she became diaphoretic and nauseated and pulled over and called her family. Her symptoms have subsided but then again she became diaphoretic, nauseated and was disoriented and was brought to the emergency department for evaluations. Patient stating she had similar symptoms happened several days prior to presentation. Patient reporting a history of random syncopal episodes associated with palpitations over the past several years. Patient stating she suffered a skull fracture after she had a syncopal episode when she was 14. She also states she had another episode a month and a half ago in which she sprained her right foot. Patient endorses lightheadedness, dizziness, disorientation, chest pressure, diaphoresis, and nausea during these episodes. She denied vomiting, changes in vision, abdominal pain, headache, bleeding, recent illness, fever or chills or diarrhea. Patient without prior cardiac history. Workup in the emergency department unremarkable. Chest x-ray negative. Head CT negative. Patient was admitted to the hospitalist service for further evaluation and management. Patient was asymptomatic throughout this admission. No signs of acute infectious processes. Carotid ultrasound unremarkable. Echocardiogram normal with ejection fraction of 60%. CTA of chest negative. Patient had history of a skull fracture at age 14 and has a familial history within maternal grandfather dying of a brain aneurysm at age 29 so a brain MRI was obtained which was negative for acute processes. Urinalysis negative. TSH normal. Mild hyperlipidemia otherwise lab work unremarkable- will defer to her primary care team for lifestyle modification versus statin initiation. Regarding her gastroparesis, she is followed by both [facility] and the [facility] and she denied current issues. Lactic acid negative and ruling out bowel ischemia. Patient was able to tolerate a regular diet during this admission. 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 TSH, T3, T4 all normal during this admission. Neurology was brought on board who cleared her for outpatient follow-up. Her mood and affect was stable. She denied any increased stressors or psychosocial illnesses at home although she states that there are family members that are convinced that these are anxiety episodes. This of course would be a diagnosis of exclusion. We did not uncover any causative factors during this admission. Recommend continued follow up outpatient. She was discharged home in stable condition with close outpatient follow-up recommended. ITS Impressions Chest X-Ray 03/16/17 09:34 IMPRESSION: No acute cardiopulmonary process. D/ / 03/16/2017 11:01:25 Reagan Rea MD / [email or web address] Interpreting Provider: Reagan Rea MD Head CT 03/16/17 09:35 IMPRESSION: No acute intracranial abnormality. D/ / Dominik Agrawal MD / Dominik Agrawal MD Interpreting Provider: Dominik Agrawal MD Chest CTA 03/16/17 14:30 IMPRESSION: No evidence of pulmonary embolism or acute pulmonary abnormality. D/ / Bj Price / Bj Price Interpreting Provider: Bj Price Carotid Duplex Procedure Date: 03/16/2017 Impressions: The bilateral carotid arteries are normal throughout. Echocardiogram Date of Study: 03/16/2017 Impressions: LVEF 60%. Normal LV chamber size, wall thickness and function. Normal left ventricular diastolic function. Normal right ventricular structure and function. No evidence of pulmonary hypertension. No significant valvular dysfunction. Brain MRI 03/17/17 09:23 IMPRESSION: Normal MRI of the brain. D/ / Erik Carlton MD / Erik Carlton MD Interpreting Provider: Erik Carlton MD - Time Spent with Patient Total time spent providing and/or coordinating discharge services: - Constitutional Vitals: Temp Pulse Resp BP Pulse Ox 98.2 F 83 14 118/85 97 03/17/17 11:14 03/17/17 11:14 03/17/17 11:14 03/17/17 11:14 03/17/17 11:14 General appearance: Present: cooperative, A&O X 3, pleasant, no acute distress, answers questions appropriately - Head Head exam: Present: atraumatic, normocephalic - Eye Eye exam: Present: PERRL, conjuntiva pink, sclera anicteric Pupils: Present: PERRL - Neck Neck exam general surgery: Present: supple, trachea midline. Absent: lymphadenopathy - Respiratory Respiratory exam: Present: CTAB. Absent: accessory muscle use, rales, respiratory distress, rhonchi, wheezes - Cardiovascular Cardiovascular exam: Present: RRR, +S1, +S2. Absent: diastolic murmur, gallop, rubs, systolic murmur - GI/Abdominal GI/Abdominal exam: Present: normal bowel sounds, soft, no peritoneal signs. Absent: distended, tenderness - Extremities Exam Extremities exam: Present: warm, radial pulses palpable and symmetrical. Absent : calf tenderness, cyanotic, pedal edema - Neurological Exam Neurological exam: Present: alert, CN II-XII intact, normal gait, oriented X3, no focal deficits, strengths equal and symetr throughout. Absent: pronater drift, facial droop, speech deficit - Psychiatric Psychiatric exam: Present: normal affect, normal mood - Skin Skin exam: Present: dry, intact, normal color, warm
--- NOTE | 2017-03-19 06:32 | Electrocardiograph Report ---
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
== END 2017-03-17 15:05 | disposition home or self-care (01) ==
LOC: 3BNU 09:20 → EMEROO 09:20 → SUATTDRO 12:30 → 3BNU 13:14
PROVIDERS: ADMIT Internal Medicine; ATTEND Nurse Practitioner Family